=== PATIENT | male | born 1990 | race Caucasian/White ===

== ENCOUNTER 2017-04-30 09:24 | Inpatient (IN) | payer OTHER ==
[2017-04-30] MEDS ORDERED: LIDOCAINE 1% MDV 20ML VIAL SQ (09:45)
[2017-04-30] MEDS ORDERED: PROPOFOL 200 MG/20 ML VIAL As Ordered ×2 (09:47→13:19)
[2017-04-30] MEDS ORDERED: fentaNYL 250 MCG/5 ML INJECTION (J3010) As Ordered (09:47)
[2017-04-30] MEDS ORDERED: ROCURONIUM BROMIDE 50 MG/5 ML VIAL As Ordered (09:47)
[2017-04-30] MEDS ORDERED: ONDANSETRON 4MG/2ML VIAL (J2405) As Ordered (09:47)
[2017-04-30] MEDS ORDERED: LIDOCAINE 2% INJ 100 MG/5 ML SDV (FOR ANES.) As Ordered (09:47)
[2017-04-30] MEDS ORDERED: MIDAZOLAM INJ 2 MG/2 ML VIAL (J2250) As Ordered (09:48)
[2017-04-30] MEDS: LR 1,000 ML IV ×3 (10:04→18:07)
[2017-04-30] MEDS ORDERED: ceFAZolin 2 GM/D5W 50 ML IV BAG (J0690 PER 500MG) As Ordered (12:05)
[2017-04-30] MEDS ORDERED: DESFLURANE 240 ML INHALANT As Ordered (12:42)
[2017-04-30] MEDS ORDERED: LABETALOL HCL 100 MG/20 ML VIAL As Ordered ×2 (13:19→13:26)
[2017-04-30] MEDS ORDERED: NEOSTIGMINE 10 MG/10 ML VIAL (J2710) As Ordered (13:34)
[2017-04-30] MEDS ORDERED: KETOROLAC 60 MG/2 ML VIAL (J1885) As Ordered (13:34)
[2017-04-30] MEDS ORDERED: HYDROmorphone HCL 2 MG/ML 1ML VIAL (J1170) As Ordered (13:34)
[2017-04-30] MEDS ORDERED: GLYCOPYRROLATE INJ 0.2 MG/ML 2 ML VIAL As Ordered (13:34)
[2017-04-30] MEDS: OXYMETAZOLINE NASAL SPRAY (AFRIN) As Ordered (13:52)
[2017-04-30] MEDS: CHLORHEXIDINE GLUCONATE 0.12 % 15ML UDC (PERIDEX ORAL RINSE) As Ordered (13:58)
[2017-04-30] MEDS: LIDOCAINE 2% W/ EPINEPHRINE 1.7 ML DENTAL INJ As Ordered ×2 (13:58)
[2017-04-30] MEDS ORDERED: METOCLOPRAMIDE INJ 10MG/2ML VIAL (J2765) As Ordered (14:29)
[2017-04-30] MEDS ORDERED: ONDANSETRON 4MG/2ML VIAL (J2405) IV (16:45)
[2017-04-30] MEDS ORDERED: fentaNYL 100 MCG/2 ML INJECTION (J3010) IV (16:45)
[2017-04-30] MEDS ORDERED: HYDROcodone/APAP LIQUID 7.5-325MG 15ML UDC (LORTAB ELIXIR) As Ordered (16:52)
[2017-04-30] MEDS: HYDROcodone/APAP LIQUID 7.5-325MG 15ML UDC (LORTAB ELIXIR) PO (17:07)
[2017-04-30] MEDS: ONDANSETRON 4MG/2ML VIAL (J2405) IV (17:30)
[2017-04-30] MEDS: dexameTHASONE 4 MG/ML 1ML VIAL (J1100) IV (18:58)
[2017-04-30] MEDS: MORPHINE 2 MG/ML 1ML SYRINGE (J2270) IV (19:08)
[2017-04-30] MEDS ORDERED: PERCOCET 5MG/325MG TAB PO (21:00)
[2017-04-30] MEDS: PSEUDOEPHEDRINE 30 MG TAB PO (21:13)
[2017-04-30] MEDS: CLINDAMYCIN 600 MG in APPROPRIATE DILUENT 1 EA IV (21:13)
[2017-05-01] MEDS: MORPHINE 2 MG/ML 1ML SYRINGE (J2270) IV (00:02)
[2017-05-01] MEDS: ONDANSETRON 4MG/2ML VIAL (J2405) IV ×2 (00:02→06:19)
[2017-05-01] MEDS: dexameTHASONE 4 MG/ML 1ML VIAL (J1100) IV ×3 (00:02→18:08)
[2017-05-01] MEDS: LR 1,000 ML IV (00:02)
[2017-05-01] MEDS: KETOROLAC 30 MG/ML VIAL (J1885) IV (03:59)
[2017-05-01] MEDS: CLINDAMYCIN 600 MG in APPROPRIATE DILUENT 1 EA IV (04:00)
[2017-05-01] MEDS: PSEUDOEPHEDRINE 30 MG TAB PO ×3 (06:20→21:14)
[2017-05-01] MEDS ORDERED: IBUPROFEN 100 MG/5 ML SUSP UDC DYE FREE PO (08:15)
[2017-05-01] MEDS: CHLORHEXIDINE ORAL RINSE 0.12%/15ML 120ML BOTTLE MT ×2 (12:13→21:15)
[2017-05-01] MEDS: OXYMETAZOLINE NASAL SPRAY (AFRIN) ×2 (12:13→21:15)
[2017-05-01] MEDS: CLINDAMYCIN PED SUSP POWDER 75 MG/5 ML 100 ML BTL PO ×2 (14:08→21:15)
[2017-05-01] MEDS: HYDROcodone/APAP LIQUID 7.5-325MG 15ML UDC (LORTAB ELIXIR) PO (14:47)
[2017-05-02] MEDS: dexameTHASONE 4 MG/ML 1ML VIAL (J1100) IV ×2 (00:17→09:14)
[2017-05-02] MEDS: PSEUDOEPHEDRINE 30 MG TAB PO (05:48)
[2017-05-02] MEDS: CLINDAMYCIN PED SUSP POWDER 75 MG/5 ML 100 ML BTL PO (05:49)
[2017-05-02] MEDS: OXYMETAZOLINE NASAL SPRAY (AFRIN) (09:13)
[2017-05-02] MEDS: CHLORHEXIDINE ORAL RINSE 0.12%/15ML 120ML BOTTLE MT (09:14)
[2017-05-02] MEDS: ONDANSETRON 4 MG ORAL DISINTEGRATING TAB (S0181) PO (12:57)
== END 2017-05-02 13:37 | disposition home or self-care (01) | DRG 132 ==
LOC: M OR 09:24 → M PED 18:04
PROC: 0NSR04Z Reposition Maxilla with Internal Fixation Device, Open Approach (ICD-10-PCS; principal; 2017-04-30 11:45)
DX: M26.02 Maxillary hypoplasia (principal)

== ENCOUNTER 2017-05-04 11:27 | Emergency (ER) | payer OTHER ==
[2017-05-04 12:24] LABS: BASO % 0.2 % (0.0-1.0); EOS % 0.3 % (0.0-3.0); HEMATOCRIT 43.5 % (42.0-52.0); HEMOGLOBIN 15.3 g/dl (14.0-18.0); IMMATURE GRANULOCYTE % 0.6 % (0-3.0); LYMPH # 1.6 10^3/uL (1.5-6.5); LYMPH % 14.9 % (24.0-44.0); MEAN CORPUSCULAR HEMOGLOBIN 30.7 pg (27.0-33.0); MEAN CORPUSCULAR HGB CONC 35.2 g/dl (32.0-36.5); MEAN CORPUSCULAR VOLUME 87.3 fl (80.0-96.0); MONO % 8.7 % (0.0-5.0); NEUTROPHILS # 8.2 10^3/uL (1.8-7.7); NEUTROPHILS % 75.3 % (36.0-66.0); PLATELET COUNT, AUTOMATED 304 10^3/uL (150-450); RED BLOOD COUNT 4.98 10^6/uL (4.30-6.10); RED CELL DISTRIBUTION WIDTH 11.7 % (11.5-14.5); WHITE BLOOD COUNT 10.9 10^3/uL (4.0-10.0)
[2017-05-04 12:27] LABS: INR 1.11; PROTHROMBIN TIME 14.5 SECONDS (12.4-14.5)
[2017-05-04] MEDS: NS 1,000 ML IV (12:28)
[2017-05-04] MEDS: PANTOPRAZOLE 40MG INJ (PROTONIX) (C9113) IV (12:29)
[2017-05-04] MEDS: ONDANSETRON 4MG/2ML VIAL (J2405) IV (12:29)
[2017-05-04] MEDS: KETOROLAC 30 MG/ML VIAL (J1885) IV (12:30)
[2017-05-04 12:45] LABS: ALBUMIN/GLOBULIN RATIO 1.21 (1.00-1.93); ALKALINE PHOSPHATASE 68 U/L (45-117); ALT/SGPT 12 U/L (12-78); ANION GAP 9 MEQ/L (8-16); AST/SGOT 9 U/L (7-37); BILIRUBIN,DIRECT 0.2 MG/DL (0.0-0.2); BILIRUBIN,TOTAL 0.8 MG/DL (0.2-1.0); BLOOD UREA NITROGEN 13 MG/DL (7-18); CARBON DIOXIDE LEVEL 29 MEQ/L (21-32); CHLORIDE LEVEL 100 MEQ/L (98-107); GLOMERULAR FILTRATION RATE > 60.0 (>60); GLUCOSE, FASTING 102 MG/DL (70-100); LIPASE 125 U/L (73-393); POTASSIUM SERUM 3.7 MEQ/L (3.5-5.1); SODIUM LEVEL 138 MEQ/L (136-145); TOTAL PROTEIN 7.3 GM/DL (6.4-8.2)
[2017-05-04 14:06] LABS: AMORPHOUS SEDIMENT RFX LARGE (NEGATIVE); KETONE, URINE AUTO RFX TRACE mg/dL (NEGATIVE); LEUKOCYTE ESTERASE UR AUTO RFX NEGATIVE (NEGATIVE); MUCUS, URINE RFX SMALL (NEGATIVE); NITRITE, URINE AUTO RFX NEGATIVE (NEGATIVE); RBC, URINE AUTO RFX 1 /HPF (0-3); SPECIFIC GRAVITY UR AUTO RFX 1.008 (1.002-1.035); SQUAM EPITHELIAL CELL UR AURFX 0 /HPF (0-6); WBC, URINE AUTO RFX 0 /HPF (0-3)
== END 2017-05-04 14:54 | disposition home or self-care (01) ==
LOC: M ED 11:27
DX: R10.9 Unspecified abdominal pain (principal); N20.0 Calculus of kidney; Z79.899 Other long term (current) drug therapy; Z88.0 Allergy status to penicillin
CPT/HCPCS: C9113

== ENCOUNTER 2017-05-17 20:28 | Emergency (ER) | payer OTHER ==
[2017-05-17] MEDS: NS 500 ML IV (21:30)
[2017-05-17 21:45] LABS: BASO % 0.3 % (0.0-1.0); EOS # 0.1 10^3/uL (0.0-0.50); HEMATOCRIT 40.1 % (42.0-52.0); HEMOGLOBIN 13.8 g/dl (14.0-18.0); IMMATURE GRANULOCYTE % 0.4 % (0-3.0); LYMPH # 1.8 10^3/uL (1.5-6.5); LYMPH % 13.5 % (24.0-44.0); MEAN CORPUSCULAR HEMOGLOBIN 30.5 pg (27.0-33.0); MEAN CORPUSCULAR HGB CONC 34.4 g/dl (32.0-36.5); MEAN CORPUSCULAR VOLUME 88.5 fl (80.0-96.0); MONO # 0.9 10^3/uL (0.0-0.8); MONO % 6.3 % (0.0-5.0); NEUTROPHILS # 10.6 10^3/uL (1.8-7.7); NEUTROPHILS % 78.5 % (36.0-66.0); PLATELET COUNT, AUTOMATED 335 10^3/uL (150-450); RED BLOOD COUNT 4.53 10^6/uL (4.30-6.10); WHITE BLOOD COUNT 13.5 10^3/uL (4.0-10.0)
[2017-05-17 22:04] LABS: ANION GAP 9 MEQ/L (8-16); BLOOD UREA NITROGEN 7 MG/DL (7-18); CALCIUM LEVEL 9.2 MG/DL (8.5-10.1); CARBON DIOXIDE LEVEL 30 MEQ/L (21-32); CHLORIDE LEVEL 101 MEQ/L (98-107); CREATININE FOR GFR 0.86 MG/DL (0.70-1.30); GLOMERULAR FILTRATION RATE > 60.0 (>60); GLUCOSE, FASTING 121 MG/DL (70-100); POTASSIUM SERUM 4.5 MEQ/L (3.5-5.1); SODIUM LEVEL 140 MEQ/L (136-145)
[2017-05-17] MEDS: LevoFLOXacin IV 750 MG in APPROPRIATE DILUENT 1 EA IV (22:45)
[2017-05-18] MEDS: IBUPROFEN 800 MG TAB PO (00:30)
== END 2017-05-18 00:45 | disposition home or self-care (01) ==
LOC: M ED 05-18 00:45
DX: J01.90 Acute sinusitis, unspecified (principal); Z79.899 Other long term (current) drug therapy; Z88.6 Allergy status to analgesic agent; Z88.5 Allergy status to narcotic agent; Z88.0 Allergy status to penicillin
CPT/HCPCS: J1956